=== PATIENT | female | born 1935 | race Caucasian/White ===

== ENCOUNTER 2016-06-24 05:20 | Inpatient (IN) | payer OTHER ==
[~2016-06-24] VITALS: Ht 170.2 cm; Wt 103.9 kg
[2016-06-24 05:21] VITALS: BP 161/75; PULSE 86; RESP 18; O2SAT 95
[2016-06-24] MEDS ORDERED: D5/0.45 NS 1,000 ML IV ONE (05:30)
[2016-06-24] MEDS ORDERED: APIX2.5T PO (05:44)
[2016-06-24] MEDS ORDERED: VIT1CAPS32 PO (05:44)
[2016-06-24] MEDS ORDERED: MULT PO (05:44)
[2016-06-24] MEDS ORDERED: ANTI1CAP2 PO (05:45)
[2016-06-24] MEDS ORDERED: ALLO100T PO (05:46)
[2016-06-24] MEDS ORDERED: AMLO2.5T50 PO (05:47)
[2016-06-24] MEDS ORDERED: CARV3.1246 PO (05:48)
[2016-06-24] MEDS ORDERED: LIP10 PO (05:48)
[2016-06-24] MEDS ORDERED: FURO20TA4 PO (05:50)
[2016-06-24] MEDS ORDERED: FENO160T8 PO (05:50)
[2016-06-24] MEDS ORDERED: SODI650T PO (05:52)
[2016-06-24] MEDS ORDERED: LISI-600 PO (05:52)
[2016-06-24] MEDS ORDERED: CYAN100067 PO (05:53)
[2016-06-24] MEDS ORDERED: LINA5TAB2 PO (05:53)
[2016-06-24] MEDS ORDERED: INSU300I SQ (05:55)
[2016-06-24] MEDS ORDERED: NACL 0.9% 1,000 ML IV ONE (06:15)
[2016-06-24 07:04] LABS: BASOPHILS % (AUTO) 0.5 % (0.0-2.0); EOSINOPHILS # (AUTO) 0.6 K/uL (0.0-0.4); EOSINOPHILS % (AUTO) 6.4 % (0.0-4.0); HEMATOCRIT 34.4 % (36-48); LYMPHOCYTES # (AUTO) 1.5 K/uL (1.0-5.5); LYMPHOCYTES % (AUTO) 16.9 % (20.5-51.5); MEAN CORPUSCULAR HEMOGLOBIN 28 pg (27-31); MEAN CORPUSCULAR HGB CONC 32 % (32-36); MEAN CORPUSCULAR VOLUME 88 fL (79.0-98.0); MONOCYTES # (AUTO) 0.4 K/uL (0.0-1.0); NEUTROPHILS # (AUTO) 6.4 K/uL (1.8-7.7); NEUTROPHILS % (AUTO) 72.2 % (40.0-70.0); PLATELET COUNT (AUTO) 190 K/uL (130-430); RED BLOOD CELL COUNT(AUTO) 3.93 MIL/uL (4.2-6.2); RED CELL DISTRIBUTION WIDTH 14.8 % (9.0-15.0); WHITE BLOOD COUNT (AUTO) 8.9 K/uL (4.8-10.8)
[2016-06-24 07:08] LABS: ANION GAP 9 (5-15); CALCIUM 9.1 mg/dL (8.4-11.0); CHLORIDE 106 mmol/L (98-107); CREATININE 2.04 mg/dL (0.55-1.30); GLUCOSE 269 mg/dL (70-99); POTASSIUM 3.6 mmol/L (3.5-5.1); SODIUM SERUM 145 mmol/L (136-145); UREA NITROGEN, BLOOD 37 mg/dL (8-21)
[2016-06-24 07:35] LABS: ALANINE AMINOTRANSFERASE 15 U/L (12-78); ALBUMIN 3.5 g/dL (3.4-4.8); ASPARTATE AMINOTRANSFERASE 23 U/L (10-37); TOTAL BILIRUBIN 0.6 mg/dL (0.0-1.0); TOTAL PROTEIN, SERUM 6.8 g/dL (6.4-8.3)
[2016-06-24 12:28] VITALS: BP 142/72; PULSE 103; RESP 17; TEMP 98.6; O2SAT 97
[2016-06-24] MEDS ORDERED: FUROSEMIDE 20 MG/2 ML VIAL IVP ONE ×2 (13:15→21:30)
[2016-06-24 16:20] VITALS: BP 137/78; PULSE 88; RESP 16; TEMP 97.9; O2SAT 95
[2016-06-24 19:40] VITALS: BP 135/76; PULSE 86; RESP 16; TEMP 97.4; O2SAT 95
[2016-06-24] MEDS ORDERED: INSULIN ASPART 100 UNITS/ML, 10 ML VIAL (NovoLOG) SUBCUT PRN (21:45)
[2016-06-24 22:39] VITALS: BP 135/76; PULSE 88
[2016-06-25] VITALS: BP 126/68; PULSE 68; RESP 20; TEMP 97.8; O2SAT 97
[2016-06-25] MEDS: ALBUTEROL SULFATE 0.083% 2.5 MG/3 ML VIAL.NEB INH SCH ×4 (03:00→11:40)
[2016-06-25 04:57] VITALS: BP 126/84; PULSE 106; RESP 18; TEMP 98.2; O2SAT 98
[2016-06-25 08:00] VITALS: BP 147/71; PULSE 111; RESP 18; TEMP 97.1; O2SAT 93
[2016-06-25] MEDS ORDERED: FUROSEMIDE 20 MG/2 ML VIAL IVP ONE (10:00)
[2016-06-25 12:49] VITALS: BP 111/65; PULSE 101; RESP 18; TEMP 97; O2SAT 97
[2016-06-25 13:32] VITALS: BP 111/65; PULSE 101; RESP 18; TEMP 97; O2SAT 97
[2016-06-25 16:26] VITALS: BP_SYST 166
== END 2016-06-25 15:50 | DRG 637 ==
LOC: SED 05:20 → SMU 12:01 → STU 13:02
PROVIDERS: ADMIT Internal Medicine Hospice and Palliative Medicine; ATTEND Internal Medicine Hospice and Palliative Medicine
DX: E11.649 Type 2 diabetes mellitus with hypoglycemia without coma (principal); I50.23 Acute on chronic systolic (congestive) heart failure; I12.9 Hypertensive chronic kidney disease with stage 1 through stage 4 chronic kidney disease, or unspecified chronic kidney disease; N18.4 Chronic kidney disease, stage 4 (severe); E11.22 Type 2 diabetes mellitus with diabetic chronic kidney disease; E11.51 Type 2 diabetes mellitus with diabetic peripheral angiopathy without gangrene; E78.5 Hyperlipidemia, unspecified; I48.2 Chronic atrial fibrillation; Z66 Do not resuscitate; I25.2 Old myocardial infarction; Z87.891 Personal history of nicotine dependence; Z89.431 Acquired absence of right foot; Z79.899 Other long term (current) drug therapy; Z86.73 Personal history of transient ischemic attack (TIA), and cerebral infarction without residual deficits
CPT/HCPCS: 36415; 71010; 80053; 82962; 83036; 83880; 84484; 85025; 87081; 93306; 94640; 94760; 99285; J1815; J1940